=== PATIENT | female | born 1970 | race Caucasian/White ===

== ENCOUNTER 2017-01-23 08:30 | Day surgery (SDC) | payer OTHER, MEDICAID ==
[~2017-01-23 08:30] MED LIST: ACETAMINOPHEN 1,000 MG/100 ML BTL IV ONE; BUPIVACAINE HCL IV ONE; CEFAZOLIN 2 Gram 2 GM/50 ML BAG IVPB ONE; FAMOTIDINE 20MG TABLET PO ONE; MECLIZINE 25 MG TABLET PO ONE; METOCLOPRAMIDE 10 MG TABLET PO ONE; MORPHINE SULFATE IV ONE; MORPHINE SULFATE/PF 0.05 MG in 0.9 % SODIUM CHLORIDE 10ML VIA 0.95 ML IV ONE; SODIUM CHLORIDE 0.9% IV ONE
[2017-01-23] MEDS ORDERED: LIDOCAINE 2% MDV (20MG/ML) 20ML VIAL IV ONE (14:00)
[2017-01-23] MEDS ORDERED: PROPOFOL 10 MG/ML VIAL IV ONE (14:00)
[2017-01-23] MEDS ORDERED: HYDROMORPHONE HCL 2 MG/ML VIAL IV ONE (14:00)
[2017-01-23] MEDS ORDERED: CEFAZOLIN 1G VIAL IM ONE (16:06)
[2017-01-23] MEDS ORDERED: MORPHINE SULFATE 5 MG/ML PFS IVP ONE (16:06)
[2017-01-23] MEDS ORDERED: CITRIC ACID/SODIUM CITRATE 30 ML SOLUTION (BICITRA) PO ONE (16:06)
--- NOTE | 2017-01-30 19:04 | Operative Note ---
DATE OF SURGERY: 01/23/2017 PREOPERATIVE DIAGNOSES: 1. Intractable cervical radiculitis, ICD10 code M54.13. 2. Programmable pump morphine and bupivacaine depleted battery. OPERATION: 1. Incision, subdissection, and removal of indwelling implanted [employer] infusion pump right abdominal inferior quadrant. 2. Resection of spinal catheter. 3. Interface resected catheter to new pump prefilled morphine and bupivacaine. 4. A 24-dagoberto Reyes needle access port clearing catheter of opiate and CSF mixture. 5. Diagnostic myelography with radiologic supervision and interpretation. 6. Programming of pump set to deliver by continuous infusion morphine at 3.5 mg/day. 7. Closure of incisions with Vicryl for fascia, running subcuticular Vicryl for skin, Dermabond closure. Surgeon: Finesse Raymond, Anesthesia: Local with sedation. Anesthesia Provider: Enoch Mendoza Indication: The patient presents with a history of intractable cervical radiculitis managed by spinal infusion device with morphine and bupivacaine. Recent refill showed battery depletion. She is here for battery replacement surgery. PROCEDURE: Intravenous line, vital signs monitoring, IV sedation. Prepped, draped, sterile technique by Anesthesia. Patient positioned supine. The right lower abdominal quadrant pump pouch prepped, draped, sterile technique. Incision infiltrated with local, incision made, subcutaneous dissection was conducted to the pump. The pump was then exteriorized. The pump was from the internal catheter component which was visualized, scarred, matted, and kinked. The catheter revision was then performed at the abdominal pouch with a new catheter component interfaced to the indwelling catheter. A new pump placed on the field filled with morphine and bupivacaine. The revised catheter was interfaced to the pump. A 24-dagoberto Reyes needle was inserted into the access port and 1 mL of catheter contents was aspirated clearing the catheter of opioid and CSF mixture. The pump was then placed into its existing pouch, secured to the fascia with nonabsorbable suture. A 24-dagoberto Reyes needle was inserted into the access port and then contrast was injected. The resulting diagnostic myelogram showed a smooth and linear flow of contrast to the catheter L3 its original location. There were no leaks, kinks, or bends noted. Internal flow characteristics of the pump were appropriate. Flow characteristics in the spinal space were appropriate. The incision was then closed with Vicryl for fascia, running subcuticular with Vicryl for skin, Dermabond closure. The pump was programmed to deliver by continuous infusion the preexisting infusion rate of 3.5 mg/day morphine and bupivacaine. She was transported to the recovery room stable showing no side effects from the procedure or the sedation. DISCHARGE INSTRUCTIONS: 1. The incision will remain clean and dry although showering can happen in 24 hours. The Dermabond should not be scrubbed and should stay intact. 2. Standard medications resumed including Levaquin the antibiotic 500 mg once a day for 14 days. An opioid, [place] 7.5/325, for 10 days provided for incisional pain. 3. Activity should remain relatively low until she is seen in the office in 5-7 days to check the incision. At that point she will be cleared for other activities. All other instructions provided, numbers to contact if problems given. At that point she was discharged. CC: Dr. Amarjit SALVADOR
== END 2017-01-23 12:40 | disposition home or self-care (01) ==
LOC: SUR 08:30
PROVIDERS: ATTEND Pain Medicine Interventional Pain Medicine
DX: T85.695A Other mechanical complication of other nervous system device, implant or graft, initial encounter (principal); M54.13 Radiculopathy, cervicothoracic region; E78.00 Pure hypercholesterolemia, unspecified
CPT/HCPCS: 62367; 81025; 62362; 00300; Q9967; J1170; J0690; J2270